=== PATIENT | male | born 1995 | race Caucasian/White ===

== ENCOUNTER 2017-01-24 22:48 | Emergency (ER) | payer OTHER ==
[~2017-01-24] VITALS: Ht 180.3 cm; Wt 75.0 kg
[~2017-01-24 22:48] MED LIST: ACET-1256 PO; DICY10CA55 PO; ONDA4TAB46 PO
[2017-01-24 22:52] VITALS: TEMP 36.6; Ht 180.3 cm; Wt 75.0 kg
[2017-01-24] MEDS ORDERED: MoRPHine SULFATE 4 MG/ML 1 ML CARP\\VIAL IV PRN (23:00)
[2017-01-24] MEDS ORDERED: ONDANSETRON INJ 2 MG/ML 2 ML VIAL IV STA (23:00)
[2017-01-24] MEDS ORDERED: KETOROLAC TROMETHAMINE 30 MG/ML VIAL IV STA (23:00)
[2017-01-24] MEDS ORDERED: SODIUM CHLORIDE 0.9% 1000ML 1,000 ML IV STA (23:00)
--- NOTE | 2017-01-24 23:10 | EMERGENCY ROOM VISIT NOTE ---
History Report prepared by Juan: Heidy Cooper Under the Supervision of: Dr. Justen Anderson M.D. First contact with patient: 22:58 Chief Complaint: KIDNEY STONE Stated Complaint: KIDNEY STONES History of Present Illness The patient is a 21 year old male who presents to the Emergency Room with complaints of worsening urinary symptoms that started 4 hours ago. He notes that over the last two hours the symptoms have been a lot worse. The patient rates his pain an 8-9/10 in severity. The patient states that he felt like he stretched a muscle in his back. He notes that the pain kept getting worse. He reports that he is experiencing burning while urinating and frequent urination. The patient states that he vomited in the waiting room of the ED. He denies any history of heart problems or diabetes. Source of History: patient Onset: 4 hours ago Position: other (kidney stone) Symptom Intensity: 8-9/10 Quality: other (kidney stone) Timing: worsening Associated Symptoms: + nausea, + vomiting, + urinary symptoms (burning and frequent urination) Review of Systems See HPI for pertinent positives & negatives. A total of 10 systems reviewed and were otherwise negative. Past Medical & Surgical Medical Problems: (1) No significant past medical history Surgical Problems: (1) No significant past surgical history Social History Smoking Status: Current Every Day Smoker Alcohol Use: occasionally Marital Status: single Occupation Status: employed Current/Historical Medications Scheduled Ondasetron Odt (Zofran Odt), 4 MG SL Q6H Scheduled PRN Oxycodone Ir (Roxicodone Ir), 1-2 TAB PO Q4H PRN for Pain Allergies Coded Allergies: No Known Allergies (Unverified , 01/24/17) Physical Exam Vital Signs Date Time Temp Pulse Resp B/P (MAP) Pulse Ox O2 Delivery O2 Flow Rate FiO2 01/25/17 01:10 68 18 125/93 99 Room Air 01/24/17 22:52 36.6 69 24 134/100 100 Room Air Physical Exam GENERAL: Patient is in moderate distress secondary to pain, pacing in room. HEENT: No acute trauma, normocephalic atraumatic, mucous membranes moist, no nasal congestion, no scleral icterus. NECK: No stridor, no adenopathy, no meningismus, trachea is midline. LUNGS: Clear to auscultation bilaterally, no wheeze, no rhonchi, breath sounds equal. HEART: Without murmurs gallops or rubs, regular rate and rhythm. ABDOMEN: Soft, nontender, bowel sounds positive, no hernias, no peritonitis. BACK: Left flank discomfort with percussion. EXTREMITIES: No cyanosis or edema, full range of motion of all the joints without pain or difficulty, no signs for acute trauma. NEUROLOGIC: Oriented x 3, no acute motor or sensory deficits, no focal weakness. SKIN: No rash, no jaundice, no diaphoresis. Medical Decision & Procedures ER Provider Diagnostic Interpretation: Radiology results as stated below per my review and radiologist interpretation: CT ABDOMEN & PELVIS Without Contrast: Comparison 02/14/2015 Punctate 1 mm stone at the left UVJ axial 147 series 2 with moderate appearing left hydroureteronephrosis. Nonobstructing stone lower pole left kidney Mild perinephric stranding. No right intrarenal stones. No bowel dilation or free air. Normal caliber appendix without secondary signs. Laboratory Results 01/24/17 23:08 01/24/17 23:08 Test 01/24/17 23:00 01/24/17 23:08 Urine Color YELLOW Urine Appearance CLEAR (CLEAR) Urine pH 7.0 (4.5-7.5) Urine Specific [place] 1.025 (1.000-1.030) Urine Protein TRACE (NEG) Urine Glucose (UA) NEG (NEG) Urine Ketones NEG (NEG) Urine Occult Blood NEG (NEG) Urine Nitrite NEG (NEG) Urine Bilirubin NEG (NEG) Urine Urobilinogen NEG (NEG) Urine Leukocyte Esterase NEG (NEG) Urine WBC (Auto) 1-5 /hpf (0-5) Urine RBC (Auto) 0-4 /hpf (0-4) Urine Hyaline Casts (Auto) 1-5 /lpf (0-5) Urine Epithelial Cells (Auto) 10-20 /lpf (0-5) Urine Bacteria (Auto) NEG (NEG) Red Blood Count 4.34 M/uL (4.7-6.1) Mean Corpuscular Volume 95.2 fL (80-100) Mean Corpuscular Hemoglobin 32.9 pg (25-34) Mean Corpuscular Hemoglobin Concent 34.6 g/dl (32-36) RDW Standard Deviation 40.7 fL (36.4-46.3) RDW Coefficient of Variation 11.8 % (11.5-14.5) Mean Platelet Volume 8.9 fL (7.4-10.4) Anion Gap 9.0 mmol/L (3-11) Est Creatinine Clear Calc Drug Dose 101.6 ml/min Estimated GFR () 98.2 Estimated GFR (Non- 84.7 BUN/Creatinine Ratio 15.7 (10-20) Calcium Level 9.2 mg/dl (8.5-10.1) Lipase 79 U/L (73-393) Laboratory results reviewed by me. Medications Administered Medications (Trade) Dose Ordered Sig/Gabe Route Start Time Stop Time Status Last Admin Dose Admin Ondansetron HCl (Zofran Inj) 4 mg NOW STAT IV 01/24/17 23:00 01/24/17 23:03 DC 01/24/17 23:08 4 MG Sodium Chloride 1,000 ml @ 999 mls/hr Q1H1M STAT IV 01/24/17 23:00 01/25/17 00:00 DC 01/24/17 23:08 999 MLS/HR Morphine Sulfate (MoRPHine SULFATE INJ) 4 mg Q15M PRN IV 01/24/17 23:00 02/07/17 22:59 01/24/17 23:08 4 MG Ketorolac Tromethamine (Toradol Inj) 30 mg NOW STAT IV 01/24/17 23:00 01/24/17 23:03 DC 01/24/17 23:08 30 MG Ondansetron HCl (Zofran Inj) 4 mg NOW STAT IV 01/25/17 00:37 01/25/17 00:38 DC 01/25/17 00:57 4 MG Sodium Chloride 500 ml @ 999 mls/hr Q31M STAT IV 01/25/17 00:37 01/25/17 01:07 DC 01/25/17 00:56 999 MLS/HR Oxycodone HCl (Roxicodone Immediate Rel 5MG Home Pack) 1 homepack UD ONCE PO 01/25/17 00:45 01/25/17 00:46 DC 01/25/17 00:56 1 HOMEPACK Ondansetron HCl (ZOFRAN ODT 4MG Home Pack) 1 homepack UD ONCE PO 01/25/17 00:45 01/25/17 00:46 DC 10/30/17 00:56 1 HOMEPACK ED Course 2258: The patient was evaluated in room B9. A complete history and physical exam was performed. 2300: Toradol Inj 30 mg IV, Morphine Sulfate 4 mg IV, Sodium Chloride 1000 ml @ 999 mls/hr IV, Zofran Inj 4 mg IV. 0035: I reassessed the patient and he is feeling better. He is still feeling a little nauseous. I will administer more nausea medication. 0037: Sodium Chloride 500 ml @ 999 mls/hr IV, Zofran Inj 4 mg IV. 0045: Ondansetron HCI 1 homepack PO, Oxycodone HCI 1 homepack PO. 0105: Reevaluated the patient. Discussed results and discharge instructions: He verbalized understanding and agreement. The patient is ready for discharge. Medical Decision Differential diagnosis: Renal colic, UTI, renal failure, electrolyte imbalance, anemia, hydronephrosis, musculoskeletal pain. There is no leukocytosis or concerning anemia. No significant electrolyte abnormality or kidney failure. Urinalysis does not show significant hematuria, there is no infection. Abdominal and pelvis CT shows hydronephrosis and a small distal left ureteral stone. No bowel obstruction. The patient received IV saline, IV Zofran, IV Toradol and IV morphine, he feels improved. He did request a second dose of IV Zofran for nausea, possibly from the morphine dosing. The patient feels improved, his pain is gone. I do think he can be discharged. He will strain his urine. He was given scripts for oxycodone and Zofran. He was advised to follow as an outpatient as he may require a urologist if not passing the stone. He was instructed to return here for fever, vomiting or uncontrolled pain. [place] Drug Monitoring Program Search Results: patient reviewed within database, no issues identified Medication Reconcilliation Current Medication List: was personally reviewed by me Blood Pressure Screening Patient's blood pressure: Elevated blood pressure Blood pressure disposition: Elevated BP felt to be situational Impression Primary Impression: Renal colic Additional Impression: Hydronephrosis Scribe Attestation The scribe's documentation has been prepared under my direction and personally reviewed by me in its entirety. I confirm that the note above accurately reflects all work, treatment, procedures, and medical decision making performed by me. Departure Information Dispostion Home / Self-Care Prescriptions Ondasetron Odt (ZOFRAN ODT) 4 Mg Tab 4 MG SL Q6H for Nausea, #10 TAB Prov: Justen Anderson M.D. 01/25/17 Oxycodone Ir (Roxicodone Ir) 5 Mg Tab 1-2 TAB PO Q4H Y for Pain, #8 TAB Prov: Justen Anderson M.D. 01/25/17 Referrals No Doctor, Assigned (PCP) Patient Instructions [facility] Additional Instructions fluids rest strain all the urine oxy ir 1 tab every 4 hours for severe pain zofran 1 tab every 6 hours for nausea return for uncontrolled pain, vomiting or fever follow as an outpatient--you may need a referral to urology Problem Qualifiers
[2017-01-24 23:16] LABS: URINE APPEARANCE CLEAR (CLEAR); URINE BILIRUBIN NEG (NEG); URINE COLOR YELLOW; URINE NITRITE NEG (NEG); URINE SPECIFIC GRAVITY 1.025 (1.000-1.030); UROBILINOGEN NEG (NEG); ZZUR CULT IF INDIC CLEAN CATCH NO
[2017-01-24 23:18] LABS: MANUAL MICROSCOPIC REQUIRED? NO; REVIEW REQ? NO
[2017-01-24 23:22] LABS: HEMATOCRIT 41.3 % (42-52); MEAN CELL VOLUME 95.2 fL (80-100); MEAN CORPUSCULAR HEMOGLOBIN 32.9 pg (25-34); MEAN CORPUSCULAR HGB CONC 34.6 g/dl (32-36); MEAN PLATELET VOLUME 8.9 fL (7.4-10.4); PLATELET COUNT 265 K/uL (130-400); RED BLOOD COUNT 4.34 M/uL (4.7-6.1); WHITE BLOOD COUNT 9.62 K/uL (4.8-10.8)
[2017-01-24 23:40] LABS: BUN/CREATININE RATIO 15.7 (10-20); CALCIUM 9.2 mg/dl (8.5-10.1); CREATININE 1.2 mg/dl (0.60-1.40); POTASSIUM 3.5 mmol/L (3.5-5.1)
[2017-01-25] MEDS ORDERED: SODIUM CHLORIDE 0.9% 500ML 500 ML IV STA (00:37)
[2017-01-25] MEDS ORDERED: ONDANSETRON INJ 2 MG/ML 2 ML VIAL IV STA (00:37)
[2017-01-25] MEDS ORDERED: OXYC1TAB3 PO (00:41)
[2017-01-25] MEDS ORDERED: ONDA4TAB10 SL (00:41)
[2017-01-25] MEDS ORDERED: ONDANSETRON HOME PACK 4MG OD TAB PO ONE (00:45)
[2017-01-25] MEDS ORDERED: OXYCODONE IR HOME PACK PO ONE (00:45)
[2017-01-25 01:10] VITALS: BP 125/93; PULSE 68; O2SAT 99
--- NOTE | 2017-01-25 06:32 | DIAGNOSTIC IMAGING REPORT ---
CT SCAN OF THE ABDOMEN AND PELVIS WITHOUT CONTRAST CLINICAL HISTORY: Left flank pain and hematuria COMPARISON STUDY: 02/14/2015 TECHNIQUE: CT scan of the abdomen and pelvis was performed from the lung bases to the proximal femurs. Images are reviewed in the axial, sagittal, and coronal planes. IV contrast was not administered for this examination. A dose lowering technique was utilized adhering to the principles of ALARA. CT DOSE: 490.55 mGy.cm FINDINGS: Lower chest: The heart is normal in size and configuration, without pericardial effusion. The lung bases and pleural spaces are clear. Liver: The unenhanced liver is normal in size, contour, and attenuation. There is no intrahepatic biliary ductal dilatation. Gallbladder: Unremarkable. Spleen: Normal in size and attenuation. Pancreas: Unremarkable. Adrenal glands: Unremarkable. Kidneys: There is an 8 mm lower pole left renal calculus. There is left-sided hydronephrosis and hydroureter. There is a 1.5 mm calculus at the level of the left ureterovesical junction. There is a possible left-sided ureterocele. Bowel: There are no transition zones indicate bowel obstruction. There is no acute diverticulitis. The appendix appears normal. Peritoneum: There is no intraperitoneal free air or abdominal ascites. Vasculature: The abdominal aorta is normal in course and caliber. Adenopathy: None. Pelvic viscera: The bladder, and pelvic viscera are unremarkable. Skeletal structures: No destructive osseous lesions are seen. IMPRESSION: 1. 8 mm lower pole left renal calculus 2. 1.5 mm calculus at the level of the left ureterovesical junction with secondary obstructive changes. 3. No evidence of bowel obstruction. No evidence of free air 4. Normal appendix Electronically signed by: Abisai Rivera M.D. 01/25/2017 6:30 AM Dictated Date/Time: 01/25/2017 6:26 AM
[2017-01-27] MEDS ORDERED: FLM4 PO (10:19)
== END 2017-01-25 01:29 | disposition home or self-care (01) ==
LOC: C.EDB 22:49
DX: N23 Unspecified renal colic (principal); N13.30 Unspecified hydronephrosis; N20.1 Calculus of ureter; F17.200 Nicotine dependence, unspecified, uncomplicated; R03.0 Elevated blood-pressure reading, without diagnosis of hypertension